=== PATIENT | female | born 1975 | race Caucasian/White ===

== ENCOUNTER 2016-10-17 18:48 | Emergency (ER) | payer BC ==
[~2016-10-17] VITALS: Ht 180.3 cm; Wt 77.3 kg
[~2016-10-17 18:48] MED LIST: PRENATAL VITAMI1 TA5 PO
[2016-10-17 19:03] VITALS: BP 117/62; TEMP 97.8
[2016-10-17 20:31] VITALS: PULSE 66
== END 2016-10-17 20:30 | disposition home or self-care (01) ==
LOC: COL.ER 18:48
DX: S01.81XA Laceration without foreign body of other part of head, initial encounter (principal); W22.8XXA Striking against or struck by other objects, initial encounter; Y92.69 Other specified industrial and construction area as the place of occurrence of the external cause

== ENCOUNTER → 2018-11-03 | Outpatient (CLI) | payer BC | LOC: MC.RAD 12:56 | DX: Z12.31 Encounter for screening mammogram for malignant neoplasm of breast (principal) ==

== ENCOUNTER → 2021-04-26 | Outpatient (CLI) | payer BC | LOC: MC.RAD 13:53 | DX: Z12.31 Encounter for screening mammogram for malignant neoplasm of breast (principal) ==

== ENCOUNTER → 2022-05-09 | Outpatient (CLI) | payer BC | LOC: MC.RAD 10:55 | DX: Z12.31 Encounter for screening mammogram for malignant neoplasm of breast (principal) ==